=== PATIENT | female | born 1970 | race Caucasian/White ===

== ENCOUNTER → 2017-04-01 | Outpatient (CLI) | payer OTHER ==
--- NOTE | 2017-04-02 09:06 | RADIOLOGY IMAGING REPORT ---
FACILITY: [facility] PATIENT NAME: MARIUSZ GARCIA : [id number] MR: [id number] V: [id number] EXAM DATE: [id number] ORDERING PHYSICIAN: GIANCARLO SARAH TECHNOLOGIST: Dayna Spicer PROCEDURE:BILATERAL DIGITAL SCREENING MAMMOGRAM WITH CAD ASSISTED INTERPRETATION & 3D TOMOSYNTHESIS COMPARISON:Prior mammograms 03/26/16, 01/16/15, 12/27/14, 12/08/13, 12/01/12, 11/17/11. INDICATIONS:SCREENING FINDINGS: Moderately heterogeneous fibroglandular tissue is seen throughout the breasts. The parenchymal pattern has remained stable allowing for difference in mammographic technique & patient positioning. There is no evidence of malignant appearing mass, malignant appearing calcifications or other secondary sign of malignancy in either breast. DIAGNOSTIC CATEGORY 1--NEGATIVE. RECOMMENDATIONS: ROUTINE MAMMOGRAM AND CLINICAL EVALUATION. IMPRESSION: BIRADS 1: Negative No significant abnormality is seen Dictated by: Kylee Thorpe M.D. on 04/01/2017 at 12:16 Transcribed by: BETHEL on 04/01/2017 at 13:21 Approved by: Kylee Thorpe M.D. on 04/02/2017 at 9:05 [facility]
== END ==
LOC: MAMO 00:36
PROVIDERS: ATTEND Nurse Practitioner Family
DX: Z12.31 Encounter for screening mammogram for malignant neoplasm of breast (principal)
CPT/HCPCS: 77063; 77067